=== PATIENT | female | born 1965 | race Two or more races ===

== ENCOUNTER 2020-04-13 10:58 | Outpatient (CLI) | payer OTHER | END 2020-04-13 11:04 | disposition home or self-care (01) | LOC: NUCLEAR 10:58 | PROVIDERS: ATTEND Specialist | DX: M81.0 Age-related osteoporosis without current pathological fracture (principal) ==

== ENCOUNTER 2020-04-21 09:59 | Outpatient (CLI) | payer OTHER | END 2020-04-21 10:28 | disposition home or self-care (01) | LOC: SONOGRAMA 09:59 | PROVIDERS: ATTEND Specialist | DX: M25.542 Pain in joints of left hand (principal); M25.541 Pain in joints of right hand ==